=== PATIENT | male | born 1985 | race Caucasian/White ===

== ENCOUNTER 2020-08-11 15:36 | Emergency (ER) | payer MEDICARE ==
[~2020-08-11] VITALS: Ht 185.4 cm; Wt 84.1 kg
[2020-08-11 15:47] VITALS: BP 145/82
[2020-08-11] MEDS ORDERED: ondansetron/PF 4mg/2ml inj IV ONE ×2 (15:50→17:40)
[2020-08-11] MEDS ORDERED: normal saline 1000ML IV soln IVB ONE (15:50)
[2020-08-11] MEDS ORDERED: ketorolac trometh. 30mg/ml inj. IV ONE (15:50)
[2020-08-11 16:23] LABS: BASOPHILS # (AUTO) 0.1 X10'3 (0-0.2); BASOPHILS % (AUTO) 0.8 % (0-1); EOSINOPHILS # (AUTO) 0.2 X10'3 (0-0.9); EOSINOPHILS % (AUTO) 1.2 % (0-6); HEMATOCRIT 47.4 % (42.0-52.0); HEMOGLOBIN 15.9 g/dl (14.0-17.9); LYMPHOCYTES # (AUTO) 1.9 X10'3 (1.1-4.8); LYMPHOCYTES % (AUTO) 12.6 % (21-51); MEAN CORPUSCULAR HGB CONC 33.5 g/dL (33.0-36.5); MEAN CORPUSCULAR VOLUME 83.5 FL (78-98); MEAN PLATELET VOLUME 9.1 FL (7.4-10.4); MONOCYTES % (AUTO) 6.6 % (2-12); NEUTROPHILS # (AUTO) 11.6 X10'3 (1.8-7.7); NEUTROPHILS % (AUTO) 78.8 % (42-75); PLATELET COUNT 303 X10'3 (140-440); RED BLOOD COUNT 5.68 X10'6 (4.70-6.10); RED CELL DISTRIBUTION WIDTH 13.1 % (11.5-14.5); WHITE BLOOD COUNT 14.8 X10'3 (4.5-11.0)
[2020-08-11 16:44] LABS: ALANINE AMINOTRANSFERASE 28 U/L (12-78); ALBUMIN 4.6 G/DL (3.4-5.0); ALBUMIN/GLOBULIN RATIO 1.2 (1.1-1.5); ALKALINE PHOSPHATASE 79 IU/L (46-116); ANION GAP 16 (8-16); ASPARTATE AMINO TRANSFERASE 21 U/L (10-37); BILIRUBIN,TOTAL 1.2 MG/DL (0.1-1.0); BLOOD UREA NITROGEN 20 MG/DL (7-18); BUN/CREATININE RATIO 17.2 (5.4-32.0); CALCIUM 9.3 MG/DL (8.5-10.1); CHLORIDE 99 MMOL/L (99-107); CREATININE 1.16 MG/DL (0.60-1.10); GLUCOSE 126 MG/DL (70-104); LIPASE 69 U/L (73-393); POTASSIUM 3.4 MMOL/L (3.5-5.1); SODIUM 138 MMOL/L (135-145); TOTAL CARBON DIOXIDE 22.7 MMOL/L (24-32); TOTAL PROTEIN 8.6 G/DL (6.4-8.2); eGFR 73 ML/MIN
[2020-08-11] MEDS ORDERED: sucralfate 1gm/10ml UD suspension PO STA (17:36)
[2020-08-11] MEDS ORDERED: LIDOcaine Viscous 15ml cup MM ONE (17:40)
[2020-08-11] MEDS ORDERED: mag hydrox/Alum hydrox/simeth 30ml oral suspension PO ONE (17:40)
[2020-08-11] MEDS ORDERED: SUCR1TAB34 PO (17:42)
[2020-08-11] MEDS ORDERED: proCHLORperazine 10 MG/2 ml inj IV ONE (18:15)
== END 2020-08-11 18:31 | disposition home or self-care (01) ==
LOC: ER 15:37
DX: R10.12 Left upper quadrant pain (principal); R06.4 Hyperventilation; R42 Dizziness and giddiness; Z79.899 Other long term (current) drug therapy
CPT/HCPCS: 36415; 80053; 83690; 85025; 93005; 96361; 96374; 96375; 96376; 99284; J1885; J2405; J7030